=== PATIENT | male | born 1945 | race Caucasian/White ===

== ENCOUNTER 2020-10-16 21:56 | Inpatient (IN) ==
--- NOTE | 2020-10-16 22:12 | Internal Med History&Physical ---
HPI History of Present Illness Patient information: Note initiated : 10/16/20 at 10:08 pm Service Date, if different from initiated Date: [] Patient: Drew Gomez 75 y/o M admitted on for Hyponatremia. Chief Complaint: [] History of present illness: Mr. 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 The patient has been asymptomatic from hyponatremia. He also has a history of hypertension, and hyperlipidemia, chronic anemia. Constitutional: no fever, fatigue, or weight loss Eyes: no vision changes or pain Cardiovascular: no chest pain, no palpitations Respiratory: no cough or dyspnea Gastrointestinal: positive for abdominal distention, nausea, and pain abdominal pain Genitourinary: no dysuria or difficulty voiding Musculoskeletal: no arthralgia or myalgia, right BKA Integumentary: no skin lesion or wound Neurological: no focal weakness or numbness Psychiatric: no anxiety or depression Head: Atraumatic, normal inspection. Eyes: normal appearance, no scleral icterus. Neck: full ROM Respiratory: no respiratory distress. Cardiovascular: normal rate and rhythm, S1, S2. GI/Abdominal: abdominal distention, hypotympanic, decreased bowel sounds, nontender, no guarding. Extremities: right BKA, otherwise full range of motion, nontender. Neurological: CN II-XII intact, intact motor, intact sensation. Psychiatric: normal mood. 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) Peripheral artery disease (Chronic) Cellulitis (Chronic) History of colonoscopy (Chronic) History of foot surgery (Chronic) Atrial fibrillation (Chronic) Diabetes mellitus (Chronic) No pertinent past surgical history (Chronic) Neurogenic bladder (Chronic) Bladder outlet obstruction (Chronic) Hypertension (Chronic) History of leukemia (Chronic) Osteomyelitis (Chronic) Urinary retention (Chronic) Medical History (Updated 04/22/20 @ 19:29 by Mary Cuellar) Atrial fibrillation Below-knee amputation of right lower extremity Bladder outlet obstruction Cellulitis Diabetes mellitus History of leukemia Hypertension Immunosuppressed status MRSA (methicillin resistant staph aureus) culture positive MSSA bacteremia Neurogenic bladder Osteomyelitis Peripheral artery disease Squamous cell skin cancer Urinary retention Waldenstrom macroglobulinemia Surgical History (Updated 04/22/20 @ 19:20 by Mary Cuellar) History of colonoscopy History of foot surgery Foot/toes Family History (Updated 04/22/20 @ 19:30 by Mary Cuellar) Father Cancer Malignant neoplastic disease Mother Cancer COPD (chronic obstructive pulmonary disease) Heart disease Social History (Updated 04/22/20 @ 19:33 by Mary Cuellar) marital status: unknown alcohol intake frequency: holiday/special occasion only MEDS/ALLERGIES Home Medications and Allergies Home Medications Medication Instructions Recorded Confirmed Type amlodipine 10 mg tablet 10 mg PO QDAY 04/22/20 10/17/20 History apple cider vinegar 1,500 mg PO DAILYP PRN 04/22/20 10/17/20 History aspirin 81 mg tablet,delayed 81 mg PO QDAY 04/22/20 10/17/20 History release losartan 100 mg tablet 100 mg PO QDAY 04/22/20 10/17/20 History atorvastatin 40 mg PO DAILY 10/17/20 10/17/20 History lamivudine 100 mg PO BID 10/17/20 10/17/20 History metoprolol succinate 50 mg PO BID 10/17/20 10/17/20 History Allergies Allergy/AdvReac Type Severity Reaction Status Date / Time Penicillins Allergy Mild Hives Verified 10/17/20 00:48 acetaminophen [From Tylenol] Allergy Unknown Hives Verified 10/17/20 00:47 A/P Narrative A/P Narrative: Assessment: 75 year old male with a history of lymphoma currently on chemotherapy admitted for severe hyponatremia suspected to be secondary to chemotherapy. #Severe hyponatremia-euvolemic and assymptomatic -suspected this is from chemotherapy side effect #Acute on chronic anemia #Abdominal distention #Lymphoma #DM #Immunosuppressed status #Atrial fibrillation Plan -monitor sodium Q4, avoid overcorrection -admission labs -home medication reconciliation -DVT ppx: -Code status: -Disposition: Time Spent With Patient Time: Total time spent is greater than 50% in coordination of care (as documented) at patient's floor/unit and/or counseling patient:
[2020-10-17] MEDS ORDERED: SENNOSIDES 1 TABLET PO PRN (00:06)
[2020-10-17] MEDS ORDERED: LACTULOSE 20 GM/30 ML ORAL.SOL PO PRN (00:06)
[2020-10-17] MEDS ORDERED: ONDANSETRON 4 MG/2 ML VIAL IV PRN (00:06)
[2020-10-17 02:00] LABS: ALT/SGPT 11 U/L (<40); AST/SGOT 29 U/L (<40); Albumin 3.2 gm/dL (3.2-5.2); Albumin/Globulin Ratio 1.1 (1.0-2.3); Alkaline Phosphatase 145 U/L (39-117); Bilirubin,Total 1.3 mg/dL (0.1-1.0); Blood Urea Nitrogen 16 mg/dL (8-23); Calcium 8.5 mg/dL (8.6-10.4); Carbon Dioxide 24 mmol/L (22-30); Chloride 90 mmol/L (96-108); Globulin 2.8 gm/dL (2.2-3.7); Glomerular Filtration Rate 88; Glucose 117 mg/dL (70-105)
[2020-10-17 02:00] LABS: Hematocrit 21.2 % (41.0-55.0); Mean Platelet Volume 9.3 fL (7.4-10.4); Platelet Count 181 K/mcL (140-440); RBC 2.28 M/mcL (4.50-5.90); Red Cell Distribution Width 15.3 % (11.5-14.5); WBC 20.6 K/mcL (4.5-11.0)
[2020-10-17 02:21] LABS: Anisocytosis 1+ (None Seen); Hypochromasia 1+ (None Seen); Lymphocytes % 67 % (15-49); Monocytes % (Manual) 6 % (1-12); Platelet Estimate NORMAL (Normal); RBC Morphology ABNORMAL (Normal); Segmented Neutrophils % 27 % (38-78)
[2020-10-17] MEDS: 0.9 % SODIUM CHLORIDE 10 ML SYRINGE IV SCH ×3 (06:28→23:27)
[2020-10-17] MEDS: DOCUSATE SODIUM 100 MG CAPSULE PO SCH ×2 (10:13→20:27)
--- NOTE | 2020-10-17 11:40 | XRay Report ---
CLINICAL INFORMATION: Abdominal Discomfort COMPARISON: None. FINDINGS: Stomach, small and large bowel are minimally dilated compatible with mild ileus. There is no free air, pathologic calcification or soft tissue mass IMPRESSION: Mild ileus. Moderate rectal stool. Interpreted and Authenticated by: Ranjeet Gómez 10/17/20
--- NOTE | 2020-10-17 13:03 | Internal Med Progress Note ---
SUBJECTIVE Subjective Patient information: Note initiated : 10/17/20 at 12:59 pm Service Date, if different from initiated Date: [] Patient: Drew Gomez 75 y/o M admitted on 10/17/20 for Hyponatremia. Chief Complaint: [] Interval history: Mr. 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 The patient has been asymptomatic from hyponatremia. He also has a history of hypertension, and hyperlipidemia, chronic anemia. 10/17-sodium level improved but trend slowed, concerned about abdominal distention, passing less gas today than usual Head: Atraumatic, normal inspection. Eyes: normal appearance, no scleral icterus. Neck: full ROM Respiratory: no respiratory distress. Cardiovascular: normal rate and rhythm, S1, S2. GI/Abdominal: abdominal distention, hypotympanic, decreased bowel sounds, nontender, no guarding. Extremities: right BKA, otherwise full range of motion, nontender. Neurological: CN II-XII intact, intact motor, intact sensation. Psychiatric: normal mood. Skin: necrotic appearing skin lesions on left foot Constitutional Vitals: Vital Signs Temp Pulse Resp BP Pulse Ox 97.9 F 55 L 18 122/79 100 10/17/20 12:00 10/17/20 12:00 10/17/20 12:00 10/17/20 12:00 10/17/20 12:00 Period Temp Pulse Resp BP Sys/Aguilar Pulse Ox Last 24 Hr 97.1 F-98.4 F 35-79 13-23 95-125/56-106 94-100 Intake and Output 10/16/20 10/17/20 10/17/20 21:59 05:59 13:59 Intake Total 0 300 Output Total 600 475 Balance -600 -175 Weight 109.588 kg Intake & Output: Intake & Output 10/16/20 10/17/20 10/17/20 21:59 05:59 13:59 Intake Total 0 300 Output Total 600 475 Balance -600 -175 Weight 109.588 kg Intake: Oral 0 300 Output: Void Amount 600 475 Other: Meal Breakfast Percent of Meal Consumed 75% Feeding Ability Independent Urine Appearance Clear Clear Urine Color Dark Yellow Bright Yellow Urine Odor Normal Normal OBJ DATA Labs CBC & Chem 7: 10/17/20 07:59 10/17/20 07:59 Labs: Abnormal Lab Results 10/17/20 10/17/20 10/17/20 07:59 07:59 04:20 WBC RBC Hgb 7.1 L Hct RDW Seg Neutrophils % Lymphocytes % RBC Morphology Hypochromasia Anisocytosis Sodium 121 L 120 L Chloride Glucose Calcium Total Bilirubin Alkaline Phosphatase 10/17/20 10/17/20 01:01 01:00 WBC 20.6 H RBC 2.28 L Hgb 7.0 L* Hct 21.2 L RDW 15.3 H Seg Neutrophils % 27 L Lymphocytes % 67 H RBC Morphology Abnormal A Hypochromasia 1+ A Anisocytosis 1+ A Sodium 122 L Chloride 90 L Glucose 117 H Calcium 8.5 L Total Bilirubin 1.3 H Alkaline Phosphatase 145 H Meds: Medications Docusate Sodium (Docusate Sodium 100 Mg Capsule) 100 mg PO BID [facility] Last Admin: 10/17/20 10:13 Dose: Not Given Documented by: Lactulose (Lactulose 20 Gm/30 Ml Oral.Britany) 10 gm PO DAILYP PRN PRN Reason: Constipation Ondansetron HCl (Ondansetron 4 Mg/2 Ml Vial) 4 mg IV Q4HP PRN; Protocol PRN Reason: Nausea And Vomiting Senna (Sennosides 1 Tablet) 2 tab PO HSP PRN PRN Reason: Constipation Sodium Chloride (0.9 % Sodium Chloride 10 Ml Syringe) 10 ml IV Q8 [facility] Last Admin: 10/17/20 06:28 Dose: 10 ml Documented by: A/P Narrative A/P Narrative: Assessment: 75 year old male with a history of lymphoma currently on chemotherapy admitted for severe hyponatremia suspected to be secondary to chemotherapy. #Severe hyponatremia-euvolemic and assymptomatic -suspected this is from chemotherapy side effect #Chronic anemia #Abdominal distention #Leukocytosis-likely related to hematololic malignancy #Hx lymphoma-recently treated with lamivudine #DM #Immunosuppressed status #Hx of atrial fibrillation Plan -monitor sodium Q4, avoid overcorrection -consider 3% saline infusion -abdominal xray -follow hemoglobin, transfuse for hgb<7 or symptomatic anemia -check for hemolysis with ldh and haptoglobin -check serum and urine osmolality, urine sodium, TSH, AM cortisol, -hold home BP meds as blood pressure normal -holding home lamivudine -fluid restriction -DVT ppx: -Code status: -Disposition: Time Spent With Patient Time: Total time spent is greater than 50% in coordination of care (as documente d) at patient's floor/unit and/or counseling patient: QUALITY VTE Deep Vein Thrombosis/Pulmonary Embolism Present on Admission: No
[2020-10-17] MEDS ORDERED: CALCIUM CARBONATE 500 MG TAB.CHEW CHEWED ONE (13:25)
[2020-10-17 14:44] LABS: Thyroid Stimulating Hormone 6.06 uIU/mL (0.27-5.01)
[2020-10-17] MEDS ORDERED: BENZOCAINE 1 SPRAY BOTTLE TOPICAL ONE (15:23)
[2020-10-17 17:11] LABS: Sodium, Urine Random 36 mmol/L
--- NOTE | 2020-10-17 17:11 | XRay Report ---
CLINICAL INFORMATION: NG tube placement COMPARISON: None. FINDINGS: NG tube overlies the gastric body. Stomach small large bowel are mildly dilated compatible with ileus. IMPRESSION: NG tube overlies the gastric body. Mild ileus Interpreted and Authenticated by: Ranjeet Gómez 10/17/20
[2020-10-17 18:12] LABS: Osmolality,Urine 295 mOSM/kg (80-1000)
[2020-10-18] MEDS: 0.9 % SODIUM CHLORIDE 10 ML SYRINGE IV SCH ×3 (06:01→21:53)
[2020-10-18 10:02] LABS: Blood Urea Nitrogen 8 mg/dL (8-23); Calcium 8.6 mg/dL (8.6-10.4); Carbon Dioxide 26 mmol/L (22-30); Chloride 93 mmol/L (96-108); Glomerular Filtration Rate 93; Glucose 106 mg/dL (70-105)
[2020-10-18 10:10] LABS: Basophils # (Auto) 0.03 K/mcL (0.00-0.20); Basophils % (Auto) 0.2 % (0.0-2.0); Eosinophils # (Auto) 0 K/mcL (0.00-0.70); Eosinophils % (Auto) 0 % (0.0-7.0); Hematocrit 21.6 % (41.0-55.0); Lymphocytes # (Auto) 11.57 K/mcL (1.50-4.80); Lymphocytes % (Auto) 67.8 % (15.0-49.0); Mean Cell Volume 94.3 fL (80.0-100.0); Mean Corpuscular HGB Conc 32.4 g/dL (31.0-36.0); Mean Platelet Volume 9.2 fL (7.4-10.4); Monocytes # (Auto) 0.61 K/mcL (0.10-0.90); Monocytes % (Auto) 3.6 % (1.0-12.0); Neutrophils % (Auto) 28.4 % (38.0-78.0); Platelet Count 144 K/mcL (140-440); RBC 2.29 M/mcL (4.50-5.90); Red Cell Distribution Width 15.4 % (11.5-14.5); WBC 17.1 K/mcL (4.5-11.0)
[2020-10-18] MEDS ORDERED: 0.9 % SODIUM CHLORIDE 250 ML IV SCH (10:30)
[2020-10-18] MEDS: DOCUSATE SODIUM 100 MG CAPSULE PO SCH ×2 (11:15→20:23)
[2020-10-18] MEDS ORDERED: LACTATED RINGERS 1,000 ML IV SCH (11:15)
--- NOTE | 2020-10-18 15:47 | Internal Med Progress Note ---
SUBJECTIVE Subjective Patient information: Note initiated : 10/18/20 at 3:40 pm Service Date, if different from initiated Date: [] Patient: Drew Gomez 75 y/o M admitted on 10/17/20 for Hyponatremia. Chief Complaint: [] Interval history: Mr. Gomez is a 75 year old male with history of lymphoma on lamivudine had routine labs drawn by oncology and found to have severe hyponatremia, he presented to [facility] ED and was transferred to [facility] because there [facility] no beds [facility]. The patient has been asymptomatic from hyponatremia. He also has a history of hypertension, and hyperlipidemia, chronic anemia. 10/17-sodium level improved but trend slowed, concerned about abdominal distention, passing less gas today than usual, abdominal xray showed ileus, NG placed and started suction with improvement in nausea 10/18-improving sodium level, attempted transfer to [facility]-denied. Continues with NG to suction, feels better than yesterday. 1 unit RBC for anemia. Head: Atraumatic, normal inspection. Eyes: normal appearance, no scleral icterus. Neck: full ROM Respiratory: no respiratory distress. Cardiovascular: normal rate and rhythm, S1, S2. GI/Abdominal: NG tube, abdominal distention, hypotympanic, decreased bowel soun ds, nontender, no guarding. Extremities: right BKA, otherwise full range of motion, nontender. Neurological: CN II-XII intact, intact motor, intact sensation. Psychiatric: normal mood. Skin: necrotic appearing skin lesions on left foot Constitutional Vitals: Vital Signs Temp Pulse Resp BP Pulse Ox 98.4 F 72 18 128/75 98 10/18/20 15:12 10/18/20 15:12 10/18/20 15:12 10/18/20 15:12 10/18/20 15:12 Period Temp Pulse Resp BP Sys/Aguilar Pulse Ox Last 24 Hr 97.3 F-98.4 F 49-72 14-28 102-134/52-93 95-100 Intake and Output 10/18/20 10/18/20 10/18/20 05:59 13:59 21:59 Intake Total 0 0 471 Output Total 650 1550 Balance -650 -1550 471 Intake & Output: Intake & Output 10/18/20 10/18/2021 05:59 13:59 21:59 Intake Total 0 0 471 Output Total 650 1550 Balance -650 -1550 471 Intake: IV 231 Sodium Chloride 0.9% 250 ml @ 0 20 mls/hr IV .[id number] [facility] Rx#: [id number] Lactated Ringers 1,000 ml @ 75 231 mls/hr IV .[id number] [facility] Rx#: [id number] Oral 0 0 240 Tube Feeding 0 Output: Gastric Drainage 650 1100 Left Nare 650 1100 Void Amount 0 450 Other: Urine Appearance Clear Urine Color Dark Yellow Urine Odor Strong OBJ DATA Labs CBC & Chem 7: 10/18/20 08:41 10/18/20 08:40 Labs: Abnormal Lab Results 10/18/20 10/18/20 10/17/20 08:41 08:40 20:00 WBC 17.1 H RBC 2.29 L Hgb 7.0 L* Hct 21.6 L RDW 15.4 H Neut % (Auto) 28.4 L Lymph % (Auto) 67.8 H Lymph # (Auto) 11.57 H Seg Neutrophils % Lymphocytes % RBC Morphology Hypochromasia Anisocytosis Haptoglobin Sodium 126 L 123 L Chloride 93 L Anion Gap 7.0 L Glucose 106 H Osmolality Calcium Total Bilirubin Alkaline Phosphatase TSH 10/17/20 10/17/20 10/17/20 16:02 13:20 11:58 WBC RBC Hgb Hct RDW Neut % (Auto) Lymph % (Auto) Lymph # (Auto) Seg Neutrophils % Lymphocytes % RBC Morphology Hypochromasia Anisocytosis Haptoglobin 24 L Sodium 122 L 120 L Chloride Anion Gap Glucose Osmolality 263 L Calcium Total Bilirubin Alkaline Phosphatase TSH 6.06 H 10/17/20 10/17/20 10/17/20 07:59 07:59 04:20 WBC RBC Hgb 7.1 L Hct RDW Neut % (Auto) Lymph % (Auto) Lymph # (Auto) Seg Neutrophils % Lymphocytes % RBC Morphology Hypochromasia Anisocytosis Haptoglobin Sodium 121 L 120 L Chloride Anion Gap Glucose Osmolality Calcium Total Bilirubin Alkaline Phosphatase TSH 10/17/20 10/17/20 01:01 01:00 WBC 20.6 H RBC 2.28 L Hgb 7.0 L* Hct 21.2 L RDW 15.3 H Neut % (Auto) Lymph % (Auto) Lymph # (Auto) Seg Neutrophils % 27 L Lymphocytes % 67 H RBC Morphology Abnormal A Hypochromasia 1+ A Anisocytosis 1+ A Haptoglobin Sodium 122 L Chloride 90 L Anion Gap Glucose 117 H Osmolality Calcium 8.5 L Total Bilirubin 1.3 H Alkaline Phosphatase 145 H TSH Meds: Medications Docusate Sodium (Docusate Sodium 100 Mg Capsule) 100 mg PO BID [facility] Last Admin: 10/18/20 11:15 Dose: Not Given Documented by: Sodium Chloride (Sodium Chloride 0.9%) 250 mls @ 20 mls/hr IV .[id number] [facility] Stop: 10/18/20 22:59 Last Infusion: 10/18/20 15:11 Dose: 0 mls/hr Documented by: Lactated Ringer's (Lactated Ringers) 1,000 mls @ 75 mls/hr IV .[id number] [facility] Stop: 10/19/20 00:34 Last Infusion: 10/18/20 15:12 Dose: 0 mls/hr Documented by: Lactulose (Lactulose 20 Gm/30 Ml Oral.Britany) 10 gm PO DAILYP PRN PRN Reason: Constipation Ondansetron HCl (Ondansetron 4 Mg/2 Ml Vial) 4 mg IV Q4HP PRN; Protocol PRN Reason: Nausea And Vomiting Last Admin: 10/17/20 15:03 Dose: 4 mg Documented by: Senna (Sennosides 1 Tablet) 2 tab PO HSP PRN PRN Reason: Constipation Sodium Chloride (0.9 % Sodium Chloride 10 Ml Syringe) 10 ml IV Q8 [facility] Last Admin: 10/18/20 15:11 Dose: 10 ml Documented by: A/P Narrative A/P Narrative: Assessment: 75 year old male with a history of lymphoma currently on chemotherapy admitted for severe hyponatremia suspected to be secondary to chemotherapy. 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 -mildly elevated TSH, AM cortisol normal #Chronic anemia -1 unit RBC 10/18 -normal LDH, decreased haptoglobin #Leukocytosis-likely related to hematologic malignancy #Hx Waldenstrom macroglobulinemia-recently treated with lamivudine #DM #Immunosuppressed status #Hx of atrial fibrillation #Subclinical hypothyroidism #Hx right BKA Plan -following sodium, avoid overcorrection -IV fluid to compensate for NG suction -follow hemoglobin, transfuse for hgb<7 or symptomatic anemia -hold home BP meds as blood pressure normal -holding home lamivudine -fluid restriction -DVT ppx: ambulatory -Code status: Full -Disposition: TBD Time Spent With Patient Time: Total time spent is greater than 50% in coordination of care (as documented) at patient's floor/unit and/or counseling patient: QUALITY VTE Deep Vein Thrombosis/Pulmonary Embolism Present on Admission: No
[2020-10-18] MEDS ORDERED: PANTOPRAZOLE 40 MG VIAL IV ONE (17:09)
[2020-10-19] MEDS: 0.9 % SODIUM CHLORIDE 10 ML SYRINGE IV SCH ×3 (05:04→21:40)
[2020-10-19] MEDS: PANTOPRAZOLE 40 MG VIAL IV SCH ×2 (07:33→18:02)
[2020-10-19] MEDS: DOCUSATE SODIUM 100 MG CAPSULE PO SCH ×2 (07:33→20:00)
[2020-10-19 07:40] LABS: Blood Urea Nitrogen 7 mg/dL (8-23); Calcium 8.7 mg/dL (8.6-10.4); Carbon Dioxide 28 mmol/L (22-30); Chloride 92 mmol/L (96-108); Glomerular Filtration Rate 93; Glucose 89 mg/dL (70-105)
[2020-10-19 07:43] LABS: Basophils # (Auto) 0.04 K/mcL (0.00-0.20); Basophils % (Auto) 0.3 % (0.0-2.0); Eosinophils # (Auto) 0.01 K/mcL (0.00-0.70); Eosinophils % (Auto) 0.1 % (0.0-7.0); Hematocrit 24.2 % (41.0-55.0); Hemoglobin 7.8 g/dL (13.5-16.5); Lymphocytes # (Auto) 9.71 K/mcL (1.50-4.80); Lymphocytes % (Auto) 62.2 % (15.0-49.0); Mean Cell Volume 96.8 fL (80.0-100.0); Mean Corpuscular HGB Conc 32.2 g/dL (31.0-36.0); Mean Platelet Volume 9.1 fL (7.4-10.4); Monocytes # (Auto) 0.64 K/mcL (0.10-0.90); Monocytes % (Auto) 4.1 % (1.0-12.0); Neutrophils % (Auto) 33.3 % (38.0-78.0); Platelet Count 125 K/mcL (140-440); Red Cell Distribution Width 15.6 % (11.5-14.5); WBC 15.6 K/mcL (4.5-11.0)
[2020-10-19] MEDS ORDERED: LORazepam 2 MG/ML VIAL IV PRN (09:23)
--- NOTE | 2020-10-19 14:48 | XRay Report ---
CLINICAL INFORMATION: follow ileus COMPARISON: 10/17/2020 FINDINGS: NG tube overlies the proximal gastric body. Stool gas pattern is normal. Possible free air under the right diaphragm. Dense consolidated atelectasis of the entire left lower lobe has resulted in increased retrocardiac density. IMPRESSION: No evidence of ileus. Possible free air. Suggest left decubitus abdomen film. Densely consolidated atelectasis of the left lower lobe Interpreted and Authenticated by: Ranjeet Gómez 10/19/20
--- NOTE | 2020-10-19 16:41 | Internal Med Progress Note ---
SUBJECTIVE Subjective Patient information: Note initiated : 10/19/20 at 4:39 pm Service Date, if different from initiated Date: [] Patient: Drew Gomez 75 y/o M admitted on 10/17/20 for Hyponatremia. Chief Complaint: [] Interval history: Mr. Gomez is a 75 year old male with history of lymphoma on lamivudine had routine labs drawn by oncology and found to have severe hyponatremia, he presented to [facility] ED and was transferred to [facility] because there were no beds at [facility]. The patient has been asymptomatic from hyponatremia. He also has a history of hypertension, and hyperlipidemia, chronic anemia. 10/17-sodium level improved but trend slowed, concerned about abdominal distention, passing less gas today than usual, abdominal xray showed ileus, NG placed and started suction with improvement in nausea 10/18-improving sodium level, attempted transfer to [facility]-denied. Continues with NG to suction, feels better than yesterday. NG suctioning coffee ground material, 1 unit RBC for anemia. 10/19-had a bowel movement and passing gas, NG tube suction clear today. Abdominal xray not suggestive of ileus. Discontinued suction and advanced to clear liquid diet. Head: Atraumatic, normal inspection. Eyes: normal appearance, no scleral icterus. Neck: full ROM Respiratory: no respiratory distress. Cardiovascular: normal rate and rhythm, S1, S2. GI/Abdominal: NG tube, abdominal distention, decreased bowel sounds, nontender, no guarding. Extremities: right BKA, otherwise full range of motion, nontender. Neurological: CN II-XII intact, intact motor, intact sensation. Psychiatric: normal mood. Skin: necrotic appearing skin lesions on left foot Constitutional Vitals: Vital Signs Temp Pulse Resp BP Pulse Ox 97.7 F 116 H 19 128/93 94 10/19/20 12:00 10/19/20 14:00 10/19/20 14:00 10/19/20 14:00 10/19/20 14:00 Period Temp Pulse Resp BP Sys/Aguilar Pulse Ox Last 24 Hr 97.7 F-98.8 F 61-116 12-25 103-140/55-93 91-99 Intake and Output 10/19/20 10/19/20 10/19/20 05:59 13:59 21:59 Intake Total 919 1560 Output Total 700 1375 Balance 219 185 Weight 109.316 kg Patient Weight 10/20/20 05:59 Weight 109.316 kg Intake & Output: Intake & Output 10/19/20 10/19/20 10/19/20 05:59 13:59 21:59 Intake Total 919 1560 Output Total 700 1375 Balance 219 185 Weight 109.316 kg Intake: IV 769 Lactated Ringers 1,000 ml @ 75 769 mls/hr IV .[id number] [facility] Rx#: [id number] Oral 150 1560 Output: Gastric Drainage 150 1150 Left Nare 150 1150 Void Amount 550 225 Other: Meal Lunch Urine Appearance Clear Clear Urine Color Dark Yellow Bright Yellow Stool Size Small Stool Color Black Stool Consistency Soft # Bowel Movements 1 OBJ DATA Labs CBC & Chem 7: 10/19/20 05:10 10/19/20 05:10 Labs: Abnormal Lab Results 10/19/20 10/19/20 10/18/20 05:10 05:10 22:02 WBC 15.6 H RBC 2.50 L Hgb 7.8 L 8.4 L Hct 24.2 L RDW 15.6 H Plt Count 125 L Neut % (Auto) 33.3 L Lymph % (Auto) 62.2 H Lymph # (Auto) 9.71 H Seg Neutrophils % Lymphocytes % RBC Morphology Hypochromasia Anisocytosis Haptoglobin Sodium 128 L Chloride 92 L Anion Gap BUN 7 L Glucose Osmolality Calcium Total Bilirubin Alkaline Phosphatase TSH 10/18/20 10/18/20 10/18/20 22:02 16:25 08:41 WBC 17.1 H RBC 2.29 L Hgb 7.0 L* Hct 21.6 L RDW 15.4 H Plt Count Neut % (Auto) 28.4 L Lymph % (Auto) 67.8 H Lymph # (Auto) 11.57 H Seg Neutrophils % Lymphocytes % RBC Morphology Hypochromasia Anisocytosis Haptoglobin Sodium 129 L 128 L Chloride Anion Gap BUN Glucose Osmolality Calcium Total Bilirubin Alkaline Phosphatase TSH 10/18/20 10/17/20 10/17/20 08:40 20:00 16:02 WBC RBC Hgb Hct RDW Plt Count Neut % (Auto) Lymph % (Auto) Lymph # (Auto) Seg Neutrophils % Lymphocytes % RBC Morphology Hypochromasia Anisocytosis Haptoglobin Sodium 126 L 123 L 122 L Chloride 93 L Anion Gap 7.0 L BUN Glucose 106 H Osmolality Calcium Total Bilirubin Alkaline Phosphatase TSH 10/17/20 10/17/20 10/17/20 13:20 11:58 07:59 WBC RBC Hgb Hct RDW Plt Count Neut % (Auto) Lymph % (Auto) Lymph # (Auto) Seg Neutrophils % Lymphocytes % RBC Morphology Hypochromasia Anisocytosis Haptoglobin 24 L Sodium 120 L 121 L Chloride Anion Gap BUN Glucose Osmolality 263 L Calcium Total Bilirubin Alkaline Phosphatase TSH 6.06 H 10/17/20 10/17/20 10/17/20 07:59 04:20 01:01 WBC 20.6 H RBC 2.28 L Hgb 7.1 L 7.0 L* Hct 21.2 L RDW 15.3 H Plt Count Neut % (Auto) Lymph % (Auto) Lymph # (Auto) Seg Neutrophils % 27 L Lymphocytes % 67 H RBC Morphology Abnormal A Hypochromasia 1+ A Anisocytosis 1+ A Haptoglobin Sodium 120 L Chloride Anion Gap BUN Glucose Osmolality Calcium Total Bilirubin Alkaline Phosphatase [facility] 10/17/20 01:00 WBC RBC Hgb Hct RDW Plt Count Neut % (Auto) Lymph % (Auto) Lymph # (Auto) Seg Neutrophils % Lymphocytes % RBC Morphology Hypochromasia Anisocytosis Haptoglobin Sodium 122 L Chloride 90 L Anion Gap BUN Glucose 117 H Osmolality Calcium 8.5 L Total Bilirubin 1.3 H Alkaline Phosphatase 145 H TSH Meds: Medications Docusate Sodium (Docusate Sodium 100 Mg Capsule) 100 mg PO BID [facility] Last Admin: 10/19/20 07:33 Dose: Not Given Documented by: Lactulose (Lactulose 20 Gm/30 Ml Oral.Britany) 10 gm PO DAILYP PRN PRN Reason: Constipation Lorazepam (Lorazepam 2 Mg/Ml Vial) 0.5 mg IV Q2HP PRN PRN Reason: ANXIETY/SEDATION Last Admin: 10/19/20 09:43 Dose: 0.5 mg Documented by: Ondansetron HCl (Ondansetron 4 Mg/2 Ml Vial) 4 mg IV Q4HP PRN; Protocol PRN Reason: Nausea And Vomiting Last Admin: 10/17/20 15:03 Dose: 4 mg Documented by: Pantoprazole Sodium (Pantoprazole 40 Mg Vial) 40 mg IV BIDAC [facility] Last Admin: 10/19/20 07:33 Dose: 40 mg Documented by: Senna (Sennosides 1 Tablet) 2 tab PO HSP PRN PRN Reason: Constipation Sodium Chloride (0.9 % Sodium Chloride 10 Ml Syringe) 10 ml IV Q8 [facility] Last Admin: 10/19/20 05:04 Dose: 10 ml Documented by: A/P Narrative A/P Narrative: Assessment: 75 year old male with a history of lymphoma currently on chemotherapy admitted for severe hyponatremia suspected to be secondary to chemotherapy. 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 -mildly elevated TSH, AM cortisol normal #Chronic anemia -1 unit RBC 10/18 -normal LDH, decreased haptoglobin #B-cell prolymphocytic leukemia #Hx Waldenstrom macroglobulinemia #Lymphocytosis likely from leukemia #Diabetes mellitus #Immunosuppressed status #Hx of atrial fibrillation #Subclinical hypothyroidism #Hx right BKA Plan -following sodium daily now -clear liquid diet -follow hemoglobin, transfuse for hgb<7 or symptomatic anemia -continue PPI, consider GI workup if downtrending -left decubitus abdominal xray for possible free air -hold home BP meds as blood pressure normal -holding home lamivudine -fluid restriction -DVT ppx: SCD for anemia -Code status: Full -Disposition: TBD Time Spent With Patient Time: Total time spent is greater than 50% in coordination of care (as documented) at patient's floor/unit and/or counseling patient: QUALITY VTE Deep Vein Thrombosis/Pulmonary Embolism Present on Admission: No
--- NOTE | 2020-10-19 19:01 | XRay Report ---
CLINICAL INFORMATION: possible free air COMPARISON: None. FINDINGS: There is no free air identified over the liver on the decubitus film. IMPRESSION: No free air identified. Interpreted and Authenticated by: Ranjeet Gómez 10/19/20
--- NOTE | 2020-10-19 19:08 | XRay Report ---
CLINICAL INFORMATION: increased oxygen requirement COMPARISON: 10/31/2013 FINDINGS: The heart is moderately enlarged-increased from prior exam. Mediastinum is unremarkable. Pulmonary vessels appear normal. Large dense consolidated region of atelectasis or, less likely, infiltrate has developed in the left lower lobe (retrocardiac region) with a small infiltrate or atelectasis developing in the right lower lobe. Small bilateral pleural effusions noted IMPRESSION: Large region of consolidated atelectasis or, less likely, infiltrate developing in the left lower lobe with small effusion. This is new from prior study. Consider aspiration Small region of infiltrate or atelectasis in the right lower lobe. This is also new Interpreted and Authenticated by: Ranjeet Gómez 10/19/20
[2020-10-19] MEDS ORDERED: LEVOFLOXACIN 500 MG/100 ML BAG IV SCH (20:00)
[2020-10-19] MEDS ORDERED: LEVOFLOXACIN 750 MG/150 ML BAG IV SCH (20:00)
[2020-10-20] MEDS ORDERED: LORazepam 2 MG/ML VIAL IV ONE (01:51)
[2020-10-20] MEDS: 0.9 % SODIUM CHLORIDE 10 ML SYRINGE IV SCH ×5 (04:59→20:10)
[2020-10-20 06:46] LABS: Basophils # (Auto) 0.03 K/mcL (0.00-0.20); Basophils % (Auto) 0.2 % (0.0-2.0); Eosinophils # (Auto) 0.01 K/mcL (0.00-0.70); Eosinophils % (Auto) 0.1 % (0.0-7.0); Hematocrit 24.7 % (41.0-55.0); Hemoglobin 7.7 g/dL (13.5-16.5); Lymphocytes # (Auto) 8.14 K/mcL (1.50-4.80); Lymphocytes % (Auto) 61.1 % (15.0-49.0); Mean Cell Volume 96.9 fL (80.0-100.0); Mean Corpuscular HGB Conc 31.2 g/dL (31.0-36.0); Mean Platelet Volume 9.1 fL (7.4-10.4); Monocytes # (Auto) 1.26 K/mcL (0.10-0.90); Monocytes % (Auto) 9.5 % (1.0-12.0); Neutrophils % (Auto) 29.1 % (38.0-78.0); Platelet Count 110 K/mcL (140-440); RBC 2.55 M/mcL (4.50-5.90); Red Cell Distribution Width 15.2 % (11.5-14.5); WBC 13.3 K/mcL (4.5-11.0)
[2020-10-20] MEDS: DOCUSATE SODIUM 100 MG CAPSULE PO SCH ×2 (07:11→20:10)
[2020-10-20] MEDS: PANTOPRAZOLE 40 MG VIAL IV SCH ×2 (07:12→16:58)
[2020-10-20 07:35] LABS: Blood Urea Nitrogen 7 mg/dL (8-23); Calcium 8.6 mg/dL (8.6-10.4); Carbon Dioxide 28 mmol/L (22-30); Chloride 95 mmol/L (96-108); Glomerular Filtration Rate 100; Glucose 102 mg/dL (70-105)
[2020-10-20] MEDS ORDERED: MINERAL OIL 1 DOSE ENEMA PR ONE (11:12)
[2020-10-20] MEDS ORDERED: ONDANSETRON 4 MG/2 ML VIAL IV PRN (13:14)
[2020-10-20] MEDS ORDERED: SENNOSIDES 1 TABLET PO PRN (13:14)
[2020-10-20] MEDS ORDERED: LACTULOSE 20 GM/30 ML ORAL.SOL PO PRN (13:14)
--- NOTE | 2020-10-20 13:15 | Internal Med Progress Note ---
SUBJECTIVE Subjective Patient information: Note initiated : 10/20/20 at 1:09 pm Service Date, if different from initiated Date: [] Patient: Drew Gomez 75 y/o M admitted on 10/17/20 for Hyponatremia. Chief Complaint: [] Interval history: Mr. Gomez is a 75 year old male with history of lymphoma on lamivudine had routine labs drawn by oncology and found to have severe hyponatremia, he presented to [facility] ED and was transferred to [facility] because there were no beds at [facility]. The patient has been asymptomatic from hyponatremia. He also has a history of hypertension, and hyperlipidemia, chronic anemia. 10/17-sodium level improved but trend slowed, concerned about abdominal distention, passing less gas today than usual, abdominal xray showed ileus, NG placed and started suction with improvement in nausea 10/18-improving sodium level, attempted transfer to [facility]-denied. Continues with NG to suction, feels better than yesterday. NG suctioning coffee ground material, 1 unit RBC for anemia. 10/19-had a small bowel movement and passing gas, NG tube suction clear today. Abdominal xray not suggestive of ileus. Discontinued suction. Increased oxygen requirment and rales so chest xray ordered which infiltrate possibly from aspiration, started Ceftriaxone. Speech consulted, NPO. 10/20-feels ok, still no bowel movement today, speech recommended dysphagia diet, bowel regimen, NG clamped but will keep until bowel movements and tolerating diet. Head: Atraumatic, normal inspection. Eyes: normal appearance, no scleral icterus. Neck: full ROM Respiratory: no respiratory distress. Cardiovascular: normal rate and rhythm, S1, S2. GI/Abdominal: NG tube, abdominal distention, decreased bowel sounds, nontender, no guarding. Extremities: right BKA, otherwise full range of motion, nontender. Neurological: CN II-XII intact, intact motor, intact sensation. Psychiatric: normal mood. Skin: necrotic appearing skin lesions on left foot Constitutional Vitals: Vital Signs Temp Pulse Resp BP Pulse Ox 97.9 F 112 H 24 H 133/75 95 10/20/20 08:00 10/20/20 11:22 10/20/20 13:02 10/20/20 12:00 10/20/20 11:22 Period Temp Pulse Resp BP Sys/Aguilar Pulse Ox Last 24 Hr 97.6 F-98.9 F 74-116 15-29 105-135/60-93 93-100 Intake and Output 10/19/20 10/20/20 10/20/20 21:59 05:59 13:59 Intake Total 750 150 400 Output Total 300 100 Balance 750 -150 300 Weight 104.78 kg Intake & Output: Intake & Output 10/19/20 10/20/20 10/20/20 21:59 05:59 13:59 Intake Total 750 150 400 Output Total 300 100 Balance 750 -150 300 Weight 104.78 kg Intake: IV 150 Oral 750 0 400 Output: Gastric Drainage 0 Left Nare 0 Void Amount 300 100 Other: Meal Breakfast Percent of Meal Consumed 100% Urine Appearance Clear Clear Urine Color Dark Yellow Dark Yellow Light Mar Urine Odor Normal Normal Stool Size Small Stool Color Black Stool Consistency Soft # Bowel Movements 1 OBJ DATA Labs CBC & Chem 7: 10/20/20 05:31 10/20/20 05:31 Labs: Abnormal Lab Results 10/20/20 10/20/20 10/19/20 05:31 05:31 05:10 WBC 13.3 H RBC 2.55 L Hgb 7.7 L Hct 24.7 L RDW 15.2 H Plt Count 110 L Neut % (Auto) 29.1 L Lymph % (Auto) 61.1 H Lymph # (Auto) 8.14 H [place] # (Auto) 1.26 H Haptoglobin Sodium 130 L 128 L Chloride 95 L 92 L Anion Gap 7.0 L BUN 7 L 7 L Creatinine 0.6 L Glucose Osmolality [facility] 10/19/20 10/18/20 10/18/20 05:10 22:02 22:02 WBC 15.6 H RBC 2.50 L Hgb 7.8 L 8.4 L Hct 24.2 L RDW 15.6 H Plt Count 125 L Neut % (Auto) 33.3 L Lymph % (Auto) 62.2 H Lymph # (Auto) 9.71 H [place] # (Auto) Haptoglobin Sodium 129 L Chloride Anion Gap BUN Creatinine Glucose Osmolality [facility] 10/18/20 10/18/20 10/18/20 16:25 08:41 08:40 WBC 17.1 H RBC 2.29 L Hgb 7.0 L* Hct 21.6 L RDW 15.4 H Plt Count Neut % (Auto) 28.4 L Lymph % (Auto) 67.8 H Lymph # (Auto) 11.57 H [place] # (Auto) Haptoglobin Sodium 128 L 126 L Chloride 93 L Anion Gap 7.0 L BUN Creatinine Glucose 106 H Osmolality TSH 10/17/20 10/17/20 10/17/20 20:00 16:02 13:20 WBC RBC Hgb Hct RDW Plt Count Neut % (Auto) Lymph % (Auto) Lymph # (Auto) [place] # (Auto) Haptoglobin 24 L Sodium 123 L 122 L Chloride Anion Gap BUN Creatinine Glucose Osmolality 263 L TSH 6.06 H 10/17/20 11:58 WBC RBC Hgb Hct RDW Plt Count Neut % (Auto) Lymph % (Auto) Lymph # (Auto) [place] # (Auto) Haptoglobin Sodium 120 L Chloride Anion Gap BUN Creatinine Glucose Osmolality TSH Meds: Medications Docusate Sodium (Docusate Sodium 100 Mg Capsule) 100 mg PO BID [facility] Last Admin: 10/20/20 07:11 Dose: Not Given Documented by: Levofloxacin (Levaquin) 750 mg in 150 mls @ 100 mls/hr IV Q24H [facility] Stop: 10/24/20 19:59 Last Infusion: 10/20/20 00:00 Dose: Infused Documented by: Lactulose (Lactulose 20 Gm/30 Ml Oral.Britany) 10 gm PO DAILYP PRN PRN Reason: Constipation Last Admin: 10/19/20 18:43 Dose: 10 gm Documented by: Lactulose (Lactulose 20 Gm/30 Ml Oral.Britany) 30 gm PO TID [facility] Ondansetron HCl (Ondansetron 4 Mg/2 Ml Vial) 4 mg IV Q4HP PRN; Protocol PRN Reason: Nausea And Vomiting Last Admin: 10/17/20 15:03 Dose: 4 mg Documented by: Pantoprazole Sodium (Pantoprazole 40 Mg Vial) 40 mg IV BIDAC [facility] Last Admin: 10/20/20 07:12 Dose: 40 mg Documented by: Senna (Sennosides 1 Tablet) 2 tab PO HSP PRN PRN Reason: Constipation Sodium Chloride (0.9 % Sodium Chloride 10 Ml Syringe) 10 ml IV Q8 [facility] Last Admin: 10/20/20 13:08 Dose: 10 ml Documented by: A/P Narrative A/P Narrative: Assessment: 75 year old male with a history of lymphoma currently on chemotherapy admitted for severe hyponatremia suspected to be secondary to chemotherapy. 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 #Lymphocytosis likely from leukemia #Diabetes mellitus #Immunosuppressed status #Hx of atrial fibrillation #Subclinical hypothyroidism #Left foot wounds #Hx of PVD #Hx right BKA Plan -transfer to med/surg -Ceftriaxone x5 days for PNA -ileus seems to be resolving, still has NG tube but clamped -following sodium daily now -dysphagia diet -follow hemoglobin, transfuse for hgb<7 or symptomatic anemia -continue PPI, no evidence of recurrent coffee grounds -holding home BP meds as blood pressure normal -holding home aspirin -holding home lamivudine -fluid restriction -Bowel regimen -DVT ppx: SCD for anemia -Code status: Full -Disposition: TBD Time Spent With Patient Time: Total time spent is greater than 50% in coordination of care (as documented) at patient's floor/unit and/or counseling patient: QUALITY VTE Deep Vein Thrombosis/Pulmonary Embolism Present on Admission: No
[2020-10-20] MEDS: LACTULOSE 20 GM/30 ML ORAL.SOL PO SCH ×2 (14:54→20:11)
[2020-10-20] MEDS: LEVOFLOXACIN 750 MG/150 ML BAG IV SCH (14:55)
[2020-10-20] MEDS ORDERED: LACTULOSE 20 GM/30 ML ORAL.SOL PO SCH ×2 (15:00)
[2020-10-20] MEDS ORDERED: MELATONIN 3 MG TABLET PO PRN (15:36)
[2020-10-20] MEDS ORDERED: ALBUTEROL SULFATE 2.5 MG/3 ML NEBULIZER NEB PRN (15:39)
[2020-10-20] MEDS: IPRATROPIUM/ALBUTEROL 3 ML AMPUL.NEB NEB SCH ×2 (15:53→21:14)
[2020-10-20] MEDS ORDERED: LORazepam 0.5 MG TABLET PO ONE (22:23)
[2020-10-20] MEDS ORDERED: LORazepam 0.5 MG TABLET ONE (22:26)
[2020-10-21] MEDS ORDERED: LORazepam 2 MG/ML VIAL ONE (01:42)
[2020-10-21] MEDS ORDERED: LORazepam 2 MG/ML VIAL IV ONE (01:42)
[2020-10-21] MEDS: 0.9 % SODIUM CHLORIDE 10 ML SYRINGE IV SCH ×2 (06:06→15:31)
--- NOTE | 2020-10-21 06:27 | Internal Med Progress Note ---
SUBJECTIVE Subjective Patient information: Note initiated : 10/21/20 at 6:27 am Service Date, if different from initiated Date: [] Patient: Drew Gomez 75 y/o M admitted on 10/17/20 for Hyponatremia. Chief Complaint: [] Interval history: Mr. Gomez is a 75 year old male with history of lymphoma on lamivudine had routine labs drawn by oncology and found to have severe hyponatremia, he presented to [facility] ED and was transferred to [facility] because there were no beds at [facility]. The patient has been asymptomatic from hyponatremia. He also has a history of hypertension, and hyperlipidemia, chronic anemia. 10/17-sodium level improved but trend slowed, concerned about abdominal distention, passing less gas today than usual, abdominal xray showed ileus, NG placed and started suction with improvement in nausea 10/18-improving sodium level, attempted transfer to [facility]-denied. Continues with NG to suction, feels better than yesterday. NG suctioning coffee ground material, 1 unit RBC for anemia. 10/19-had a small bowel movement and passing gas, NG tube suction clear today. Abdominal xray not suggestive of ileus. Discontinued suction. Increased oxygen requirment and rales so chest xray ordered which infiltrate possibly from aspiration, started Ceftriaxone. Speech consulted, NPO. 10/20-feels ok, still no bowel movement today, speech recommended dysphagia diet, bowel regimen, NG clamped but will keep until bowel movements and tolerating diet. 10/21-stable respiratory status, large bowel movement yesterday, ileus probably resolved now, sodium continues to improve, hemoglobin about the same as yesterday and at patient's baseline Head: Atraumatic, normal inspection. Eyes: normal appearance, no scleral icterus. Neck: full ROM Respiratory: no respiratory distress. Cardiovascular: normal rate and rhythm, S1, S2. GI/Abdominal: NG tube, abdominal distention, decreased bowel sounds, nontender, no guarding. Extremities: right BKA, otherwise full range of motion, nontender. Neurological: CN II-XII intact, intact motor, intact sensation. Psychiatric: normal mood. Skin: necrotic appearing skin lesions on left foot Constitutional Vitals: Vital Signs Temp Pulse Resp BP Pulse Ox 97.7 F 92 H 20 124/67 92 10/21/20 03:58 10/21/20 03:58 10/21/20 03:58 10/21/20 03:58 10/21/20 03:58 Period Temp Pulse Resp BP Sys/Aguilar Pulse Ox Last 24 Hr 97.7 F-98.0 F 78-112 16-24 118-135/66-88 92-98 Intake and Output 10/20/20 10/21/20 10/21/20 21:59 05:59 13:59 Intake Total 1190 200 Output Total 925 525 Balance 265 200 -525 Weight 93.531 kg Intake & Output: Intake & Output 10/20/20 10/21/20 10/21/20 21:59 05:59 13:59 Intake Total 1190 200 Output Total 925 525 Balance 265 200 -525 Weight 93.531 kg Intake: IV 150 Oral 1040 200 Output: Void Amount 925 525 Other: Meal Dinner Percent of Meal Consumed 100% Feeding Ability Assist with Tray Set Up Urine Appearance Clear Clear Urine Color Dark Yellow Dark Mar Light Mar Stool Size Copious Stool Color Black Stool Consistency Soft Formed Liquid # Bowel Movements 1 # of times incontinent of 1 Bowels OBJ DATA Labs CBC & Chem 7: 10/21/20 04:38 10/21/20 04:38 Labs: Abnormal Lab Results 10/20/20 10/20/20 10/19/20 05:31 05:31 05:10 WBC 13.3 H RBC 2.55 L Hgb 7.7 L Hct 24.7 L RDW 15.2 H Plt Count 110 L Neut % (Auto) 29.1 L Lymph % (Auto) 61.1 H Lymph # (Auto) 8.14 H [place] # (Auto) 1.26 H Sodium 130 L 128 L Chloride 95 L 92 L Anion Gap 7.0 L BUN 7 L 7 L Creatinine 0.6 L Glucose 10/19/20 10/18/20 10/18/20 05:10 22:02 22:02 WBC 15.6 H RBC 2.50 L Hgb 7.8 L 8.4 L Hct 24.2 L RDW 15.6 H Plt Count 125 L Neut % (Auto) 33.3 L Lymph % (Auto) 62.2 H Lymph # (Auto) 9.71 H [place] # (Auto) Sodium 129 L Chloride Anion Gap BUN Creatinine Glucose 10/18/20 10/18/2021 16:25 08:41 08:40 WBC 17.1 H RBC 2.29 L Hgb 7.0 L* Hct 21.6 L RDW 15.4 H Plt Count Neut % (Auto) 28.4 L Lymph % (Auto) 67.8 H Lymph # (Auto) 11.57 H [place] # (Auto) Sodium 128 L 126 L Chloride 93 L Anion Gap 7.0 L BUN Creatinine Glucose 106 H Meds: Medications Albuterol Sulfate (Albuterol Sulfate 2.5 Mg/3 Ml Nebulizer) 2.5 mg NEB Q2HP PRN PRN Reason: Shortness Of Breath Albuterol/Ipratropium (Ipratropium/Albuterol 3 Ml Ampul.Neb) 3 ml NEB Q6HP [facility] Last Admin: 10/20/20 21:14 Dose: 3 ml Documented by: Docusate Sodium (Docusate Sodium 100 Mg Capsule) 100 mg PO BID [facility] Last Admin: 10/20/20 20:10 Dose: 100 mg Documented by: Levofloxacin (Levaquin) 750 mg in 150 mls @ 100 mls/hr IV Q24H [facility] Stop: 10/24/20 14:59 Last Infusion: 10/20/20 16:25 Dose: Infused Documented by: Lactulose (Lactulose 20 Gm/30 Ml Oral.Britany) 30 gm PO TID [facility] Last Admin: 10/20/20 20:11 Dose: Not Given Documented by: Lactulose (Lactulose 20 Gm/30 Ml Oral.Britany) 10 gm PO DAILYP PRN PRN Reason: Constipation Melatonin (Melatonin 3 Mg Tablet) 3 mg PO [facility] PRN PRN Reason: Sleep Last Admin: 10/20/20 22:13 Dose: 3 mg Documented by: Ondansetron HCl (Ondansetron 4 Mg/2 Ml Vial) 4 mg IV Q4HP PRN; Protocol PRN Reason: Nausea And Vomiting Pantoprazole Sodium (Pantoprazole 40 Mg Vial) 40 mg IV BIDAC [facility] Last Admin: 10/20/20 16:58 Dose: 40 mg Documented by: Senna (Sennosides 1 Tablet) 2 tab PO HSP PRN PRN Reason: Constipation Sodium Chloride (0.9 % Sodium Chloride 10 Ml Syringe) 10 ml IV Q8 [facility] Last Admin: 10/21/20 06:06 Dose: 10 ml Documented by: A/P Narrative A/P Narrative: Assessment: 75 year old male with a history of lymphoma currently on chemotherapy admitted for severe hyponatremia suspected to be secondary to chemotherapy. 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 -mildly elevated TSH, AM cortisol normal #Acute on chronic anemia -1 unit RBC 10/18 -normal LDH, decreased haptoglobin #Concern for possible GI bleed-initially had coffee grounds in NG suction but has resolved, on PPI and monitoring hemoglobin #Dysphagia #B-cell prolymphocytic leukemia #Hx Waldenstrom macroglobulinemia #Lymphocytosis likely from leukemia #Diabetes mellitus #Immunosuppressed status #Hx of atrial fibrillation #Subclinical hypothyroidism #Left foot wounds #Hx of PVD #Hx right BKA Plan -Chest xray Pa/lateral -Complete Levofloxacin x5 days for PNA -ileus probably resolved now, remove NG tube -following sodium daily-stable -dysphagia diet-speech following -follow hemoglobin, transfuse for hgb<7 or symptomatic anemia -continue PPI for now but no evidence of recurrent coffee grounds -holding home BP meds as blood pressure normal -holding home aspirin -holding home lamivudine -fluid restriction -Bowel regimen -DVT ppx: SCD for anemia -Code status: Full -Disposition: TBD Time Spent With Patient Time: Total time spent is greater than 50% in coordination of care (as document ed) at patient's floor/unit and/or counseling patient: QUALITY VTE Deep Vein Thrombosis/Pulmonary Embolism Present on Admission: No
[2020-10-21] MEDS: PANTOPRAZOLE 40 MG VIAL IV SCH ×2 (07:32→17:36)
[2020-10-21 07:45] LABS: Basophils # (Auto) 0.02 K/mcL (0.00-0.20); Basophils % (Auto) 0.2 % (0.0-2.0); Eosinophils # (Auto) 0.02 K/mcL (0.00-0.70); Eosinophils % (Auto) 0.2 % (0.0-7.0); Hemoglobin 7.5 g/dL (13.5-16.5); Lymphocytes # (Auto) 5.97 K/mcL (1.50-4.80); Mean Corpuscular HGB Conc 31.3 g/dL (31.0-36.0); Mean Platelet Volume 9.2 fL (7.4-10.4); Monocytes # (Auto) 1.95 K/mcL (0.10-0.90); Monocytes % (Auto) 18.1 % (1.0-12.0); Neutrophils % (Auto) 26.1 % (38.0-78.0); Platelet Count 106 K/mcL (140-440); WBC 10.8 K/mcL (4.5-11.0)
[2020-10-21 08:32] LABS: Blood Urea Nitrogen 8 mg/dL (8-23); Calcium 8.7 mg/dL (8.6-10.4); Carbon Dioxide 27 mmol/L (22-30); Chloride 96 mmol/L (96-108); Glomerular Filtration Rate 93; Glucose 111 mg/dL (70-105)
[2020-10-21] MEDS: LACTULOSE 20 GM/30 ML ORAL.SOL PO SCH (09:26)
[2020-10-21] MEDS: IPRATROPIUM/ALBUTEROL 3 ML AMPUL.NEB NEB SCH ×2 (09:50→20:20)
[2020-10-21] MEDS: LEVOFLOXACIN 750 MG/150 ML BAG IV SCH (10:01)
[2020-10-21] MEDS: DOCUSATE SODIUM 100 MG CAPSULE PO SCH ×2 (10:01→21:26)
--- NOTE | 2020-10-21 11:21 | XRay Report ---
INDICATION: cough TECHNIQUE: PA and lateral upright chest x-ray COMPARISON: Previous chest x-rays dated 10/19/2020, 10/31/2013. FINDINGS: Lungs: Density in left retrocardiac region consistent with volume loss or pneumonia. Appearance is improved since 10/19/2020. Right lung base is improved. Heart, vascular: No significant cardiomegaly. Pulmonary vascularity is normal. No pulmonary edema or pulmonary congestion Mediastinum, loraine: No mediastinal widening. No hilar mass Pleura:There is blunting of the right costophrenic angle. There is a small to moderate pleural effusion posteriorly. It is difficult to determine whether this is right-sided or left-sided. Thoracic spine, ribs: No thoracic compression fracture. Ribs are negative. No fracture. No lytic lesion IMPRESSION: 1. Improved chest x-ray since 10/19/2020 2. Resolution of right basilar infiltrate. Improved left lower lobe finding loss or consolidation 3. Small to moderate pleural effusion Interpreted and Authenticated by: Ranjeet Segundo 10/21/20
[2020-10-21 11:39] LABS: Lymphocytes % (Auto) 55.4 % (15.0-49.0)
--- NOTE | 2020-10-21 13:30 | Internal Med Progress Note ---
SUBJECTIVE Subjective Patient information: Note initiated : 10/21/20 at 1:25 pm Service Date, if different from initiated Date: [] Patient: Drew Gomez 75 y/o M admitted on 10/17/20 for Hyponatremia. Chief Complaint: [] Interval history: Mr. Gomez is a 75 year old male with history of lymphoma on lamivudine had routine labs drawn by oncology and found to have severe hyponatremia, he presented to [facility] ED and was transferred to [facility] because there were no beds at [facility]. The patient has been asymptomatic from hyponatremia. He also has a history of hypertension, and hyperlipidemia, chronic anemia. 10/17-sodium level improved but trend slowed, concerned about abdominal distention, passing less gas today than usual, abdominal xray showed ileus, NG placed and started suction with improvement in nausea 10/18-improving sodium level, attempted transfer to [facility]-denied. Continues with NG to suction, feels better than yesterday. NG suctioning coffee ground material, 1 unit RBC for anemia. 10/19-had a small bowel movement and passing gas, NG tube suction clear today. Abdominal xray not suggestive of ileus. Discontinued suction. Increased oxygen requirment and rales so chest xray ordered which infiltrate possibly from aspiration, started Ceftriaxone. Speech consulted, NPO. 10/20-feels ok, still no bowel movement today, speech recommended dysphagia diet, bowel regimen, NG clamped but will keep until bowel movements and tolerating diet. 10/21-stable respiratory status, large bowel movement yesterday, ileus probably resolved now, sodium continues to improve, hemoglobin about the same as yesterday and at patient's baseline 10/22 Constitutional Vitals: Vital Signs Temp Pulse Resp BP Pulse Ox 98.2 F 86 16 134/82 93 10/21/20 08:00 10/21/20 09:51 10/21/20 09:51 10/21/20 08:00 10/21/20 09:51 Period Temp Pulse Resp BP Sys/Aguilar Pulse Ox Last 24 Hr 97.7 F-98.2 F 78-93 16-20 118-134/66-82 92-96 Intake and Output 10/20/20 10/21/20 10/21/20 21:59 05:59 13:59 Intake Total 1190 200 150 Output Total 925 525 Balance 265 200 -375 Weight 93.531 kg Intake & Output: Intake & Output 10/20/20 10/21/20 10/21/20 21:59 05:59 13:59 Intake Total 1190 200 150 Output Total 925 525 Balance 265 200 -375 Weight 93.531 kg Intake: IV 150 150 Oral 1040 200 Output: Void Amount 925 525 Other: Meal Dinner Percent of Meal Consumed 100% Feeding Ability Assist with Tray Set Up Urine Appearance Clear Clear Urine Color Dark Yellow Dark Mar Light Mar Stool Size Copious Stool Color Black Stool Consistency Soft Formed Liquid # Bowel Movements 1 # of times incontinent of 1 Bowels Exam: General: Alert, Awake, No acute Distress Eyes/N/T: EOMI, PERRL, MM Head/Neck: neck supple, normocephalic atraumatic CV: RRR, No murmurs, normal s1/s2 Pulm: Clear b/l, no wheezing/rhonchi/rales Abd: NG tube, abdominal distention, decreased bowel sounds, nontender, no guarding. Ext: right BKA, otherwise full range of motion, nontender. Neuro: Alert, no focal deficits, moves all extremities, OBJ DATA Labs CBC & Chem 7: 10/21/20 04:38 10/21/20 04:38 Labs: Abnormal Lab Results 10/21/20 10/21/20 10/20/20 04:38 04:38 05:31 WBC RBC 2.50 L Hgb 7.5 L Hct 24.0 L RDW 15.0 H Plt Count 106 L Neut % (Auto) 26.1 L Lymph % (Auto) 55.4 H [place] % (Auto) 18.1 H Lymph # (Auto) 5.97 H [place] # (Auto) 1.95 H Sodium 132 L 130 L Chloride 95 L Anion Gap 7.0 L BUN 7 L Creatinine 0.6 L Glucose 111 H 10/20/20 10/19/20 10/19/20 05:31 05:10 05:10 WBC 13.3 H 15.6 H RBC 2.55 L 2.50 L Hgb 7.7 L 7.8 L Hct 24.7 L 24.2 L RDW 15.2 H 15.6 H Plt Count 110 L 125 L Neut % (Auto) 29.1 L 33.3 L Lymph % (Auto) 61.1 H 62.2 H [place] % (Auto) Lymph # (Auto) 8.14 H 9.71 H [place] # (Auto) 1.26 H Sodium 128 L Chloride 92 L Anion Gap BUN 7 L Creatinine Glucose 10/18/20 10/18/20 10/18/20 22:02 22:02 16:25 WBC RBC Hgb 8.4 L Hct RDW Plt Count Neut % (Auto) Lymph % (Auto) [place] % (Auto) Lymph # (Auto) [place] # (Auto) Sodium 129 L 128 L Chloride Anion Gap BUN Creatinine Glucose Meds: Medications Albuterol Sulfate (Albuterol Sulfate 2.5 Mg/3 Ml Nebulizer) 2.5 mg NEB Q2HP PRN PRN Reason: Shortness Of Breath Albuterol/Ipratropium (Ipratropium/Albuterol 3 Ml Ampul.Neb) 3 ml NEB Q6HP [facility] Last Admin: 10/21/20 09:50 Dose: 3 ml Documented by: Docusate Sodium (Docusate Sodium 100 Mg Capsule) 100 mg PO BID [facility] Last Admin: 10/21/20 10:01 Dose: 100 mg Documented by: Levofloxacin (Levaquin) 750 mg in 150 mls @ 100 mls/hr IV Q24H [facility] Stop: 10/24/20 14:59 Last Infusion: 10/21/20 11:51 Dose: Infused Documented by: Lactulose (Lactulose 20 Gm/30 Ml Oral.Britany) 10 gm PO DAILYP PRN PRN Reason: Constipation Melatonin (Melatonin 3 Mg Tablet) 3 mg PO HSP PRN PRN Reason: Sleep Last Admin: 10/20/20 22:13 Dose: 3 mg Documented by: Ondansetron HCl (Ondansetron 4 Mg/2 Ml Vial) 4 mg IV Q4HP PRN; Protocol PRN Reason: Nausea And Vomiting Pantoprazole Sodium (Pantoprazole 40 Mg Vial) 40 mg IV BIDAC [facility] Last Admin: 10/21/20 07:32 Dose: 40 mg Documented by: Polyethylene Glycol (Polyethylene Glycol 3350 17 Gm Packet) 17 gm PO DAILY [facility] Senna (Sennosides 1 Tablet) 2 tab PO HSP PRN PRN Reason: Constipation Sodium Chloride (0.9 % Sodium Chloride 10 Ml Syringe) 10 ml IV Q8 [facility] Last Admin: 10/21/20 06:06 Dose: 10 ml Documented by: A/P Narrative A/P Narrative: A: #Pneumonia possibly d/t aspiration: -f/u cxr improed infilatre, smal-mod pleural effusion #Ileus: Resolving #Hyponatremia, 2/2 SIADH: improved -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, mildly elevated TSH, AM cortisol normal #Anemia, acute on chronic: -1 unit RBC 10/18, normal LDH, decreased haptoglobin #Concern for possible GI bleed: initially had coffee grounds in NG suction but has resolved, on PPI and monitoring hemoglobin #Oropharyngeal Dysphagia, moderate: #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: #Lymphocytosis likely from leukemia: #Immunosuppressed status #Diabetes mellitus: #h/o AFib: #Subclinical hypothyroidism: #Left foot wounds: #Hx of PVD #Hx right BKA: # Plan: -Chest xray Pa/lateral -Complete Levofloxacin x5 days for PNA -ileus probably resolved now, remove NG tube -following sodium daily-stable , -fluid restriction -dysphagia diet per ST -monitor H&H, transfuse for hgb<7 or symptomatic anemia -continue PPI for now but no evidence of recurrent coffee grounds -holding home BP meds as blood pressure normal -holding home aspirin -holding home lamivudine -Bowel regimen -DVT ppx: SCD for anemia Code status: Environmental Services Assistant Spent With Patient Time: Total time spent is greater than 50% in coordination of care (as documented) at patient's floor/unit and/or counseling patient: QUALITY VTE Deep Vein Thrombosis/Pulmonary Embolism Present on Admission: No
--- NOTE | 2020-10-21 15:15 | Discharge Summary ---
Discharge Provider Provider Patient information: Note initiated : 10/21/20 at 3:13 pm Service Date, if different from initiated Date: [] Patient: Drew Gomez 75 y/o M admitted on 10/17/20 for Hyponatremia. Chief Complaint: [] Date of admission: 10/17/20 00:02 Discharge date: 10/22/20 Primary care physician: Jose D Townsend MD Consults: 10/16/20 22:01 Consult to Physician [CONS] Routine Comment: Consulting Provider: Yuval Oakley Reason For Exam: Physician to Consult Discharge Meds Discharge Medications Home Medications apple cider vinegar 1,500 mg PO DAILYP PRN 04/22/20 [History Confirmed 10/17/20 Last Taken 10/16/20 08:00] aspirin 81 mg tablet,delayed release 81 mg PO QDAY 04/22/20 [History Confirmed 10/17/20 Last Taken 10/16/20 08:00] atorvastatin 40 mg PO DAILY 10/17/20 [History Confirmed 10/17/20 Last Taken 10/16/20 08:00] lamivudine 100 mg PO BID 10/17/20 [History Confirmed 10/17/20 Last Taken 10/16/20 09:00] metoprolol succinate 50 mg PO BID 10/17/20 [History Confirmed 10/17/20 Last Taken 10/16/20 08:00] amlodipine 5 mg PO QDAY #20 tab 10/21/20 [Rx Last Taken Unknown] pantoprazole [Protonix] 40 mg PO QDAY #90 tab 10/21/20 [Rx Last Taken Unknown] docusate sodium [DOK] 100 mg PO BID #60 cap 10/22/20 [Rx Last Taken Unknown] levofloxacin 750 mg PO QDAY #1 tab 10/22/20 [Rx Last Taken Unknown] polyethylene glycol 3350 [Miralax] 17 g PO QDAY #119 g 10/22/20 [Rx Last Taken Unknown] COURSE Hospital Course Hospital course: Interval history: Mr. 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 The patient has been asymptomatic from hyponatremia. He also has a history of hypertension, and hyperlipidemia, chronic anemia. 5/21-sodium level improved but trend slowed, concerned about abdominal distention, passing less gas today than usual, abdominal xray showed ileus, NG placed and started suction with improvement in nausea 10/18-improving sodium level, attempted transfer to [facility]-denied. Continues with NG to suction, feels better than yesterday. NG suctioning coffee ground material, 1 unit RBC for anemia. 10/19-had a small bowel movement and passing gas, NG tube suction clear today. Abdominal xray not suggestive of ileus. Discontinued suction. Increased oxygen requirment and rales so chest xray ordered which infiltrate possibly from aspiration, started Ceftriaxone. Speech consulted, NPO. 10/20-feels ok, still no bowel movement today, speech recommended dysphagia diet, bowel regimen, NG clamped but will keep until bowel movements and tolerating diet. 10/21-stable respiratory status, large bowel movement yesterday, ileus probably resolved now, sodium continues to improve, hemoglobin about the same as yesterday and at patient's baseline 10/22 No overnight event or new complaints. Had a good bowel movement morning after laxative. Patient discharged home with home health care. 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 fib hypothyroidism foot wounds Time Spent with Patient Time attestation: Total time spent providing and/or coordinating discharge services: Time spent: Greater than 30 minutes EXAM Constitutional Vitals: Temp Pulse Resp BP Pulse Ox 97.6 F 88 20 122/73 95 10/21/20 12:00 10/21/20 12:00 10/21/20 12:00 10/21/20 12:00 10/21/20 12:00 Discharge Data Data Completed and Pending Labs on day of discharge: Labs from last 24 hours 10/21/20 10/21/20 04:38 04:38 WBC 10.8 RBC 2.50 L Hgb 7.5 L Hct 24.0 L MCV 96.0 MCH 30.0 MCHC 31.3 RDW 15.0 H Plt Count 106 L MPV 9.2 Neut % (Auto) 26.1 L Lymph % (Auto) 55.4 H [place] % (Auto) 18.1 H Eos % (Auto) 0.2 Baso % (Auto) 0.2 Lymph # (Auto) 5.97 H [place] # (Auto) 1.95 H Eos # (Auto) 0.02 Baso # (Auto) 0.02 Absolute Neutrophils 2.82 Sodium 132 L Potassium 3.8 Chloride 96 Carbon Dioxide 27 Anion Gap 9.0 BUN 8 Creatinine 0.7 GFR Calculation 93 Glucose 111 H Calcium 8.7 Magnesium 1.9 Discharge Plan Patient/Caregiver Discharge Instructions Activity: increase activity as tolerated Diet: Dysphagia Level 4 Pureed Foods Activity Restrictions/Additional Instructions: Follow-up with PCP in 3 to 7 days 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 1800cc fluid restrict per day. Prescriptions: New pantoprazole [Protonix] 40 mg tablet,delayed release (DR/EC) 40 mg PO QDAY Qty: 90 RF: 0 levofloxacin 750 mg tablet 750 mg PO QDAY Qty: 1 RF: 0 docusate sodium [DOK] 100 mg Capsule 100 mg PO BID Qty: 60 RF: 0 polyethylene glycol 3350 [Miralax] 17 gram/dose powder 17 g PO QDAY Qty: 119 RF: 0 Continued apple cider vinegar 1,500 mg PO DAILYP PRN (Reason: weight control) RF: 0 aspirin [Adult Aspirin Regimen] 81 mg tablet,delayed release (DR/EC) 81 mg PO QDAY RF: 0 metoprolol succinate 50 mg tablet extended release 24 hr 50 mg PO BID RF: 0 atorvastatin 40 mg tablet 40 mg PO DAILY RF: 0 lamivudine 100 mg Tablet 100 mg PO BID RF: 0 Changed amlodipine 10 mg tablet 5 mg PO QDAY Qty: 20 RF: 0 Discontinued losartan 100 mg tablet 100 mg PO QDAY RF: 0 Follow Up Plan Follow up with: Jose D Townsend MD [Primary Care Provider] - Patient Disposition: Home Health Service Prognosis: Undetermined Overall status at discharge: patient is progressing back to baseline Discharge Orders: Discharge Order (Routine); Ordered 10/22/20 Ordered By: Mj Hernandes [facility] VTE Deep Vein Thrombosis/Pulmonary Embolism Present on Admission: No
[2020-10-21] MEDS ORDERED: diphenhydrAMINE 25 MG CAPSULE PO PRN (15:39)
[2020-10-21] MEDS ORDERED: MELATONIN 3 MG TABLET PO SCH (21:00)
[2020-10-22] MEDS: 0.9 % SODIUM CHLORIDE 10 ML SYRINGE IV SCH ×3 (01:06→15:13)
[2020-10-22] MEDS: PANTOPRAZOLE 40 MG VIAL IV SCH (07:37)
--- NOTE | 2020-10-22 07:38 | Internal Med Progress Note ---
SUBJECTIVE Subjective Patient information: Note initiated : 10/22/20 at 7:35 am Service Date, if different from initiated Date: [] Patient: Drew Gomez 75 y/o M admitted on 10/17/20 for Hyponatremia. Chief Complaint: [] Interval history: Mr. 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 The patient has been asymptomatic from hyponatremia. He also has a history of hypertension, and hyperlipidemia, chronic anemia. 10/17-sodium level improved but trend slowed, concerned about abdominal distention, passing less gas today than usual, abdominal xray showed ileus, NG placed and started suction with improvement in nausea 10/18-improving sodium level, attempted transfer to [facility]-denied. Continues with NG to suction, feels better than yesterday. NG suctioning coffee ground material, 1 unit RBC for anemia. 10/19-had a small bowel movement and passing gas, NG tube suction clear today. Abdominal xray not suggestive of ileus. Discontinued suction. Increased oxygen requirment and rales so chest xray ordered which infiltrate possibly from aspiration, started Ceftriaxone. Speech consulted, NPO. 10/20-feels ok, still no bowel movement today, speech recommended dysphagia diet, bowel regimen, NG clamped but will keep until bowel movements and tolerating diet. 10/21-stable respiratory status, large bowel movement yesterday, ileus probably resolved now, sodium continues to improve, hemoglobin about the same as yesterday and at patient's baseline 10/22 Constitutional Vitals: Vital Signs Temp Pulse Resp BP Pulse Ox 98.4 F 78 22 132/68 93 10/22/20 03:10 10/22/20 03:10 10/22/20 03:10 10/22/20 03:10 10/22/20 03:10 Period Temp Pulse Resp BP Sys/Aguilar Pulse Ox Last 24 Hr 97.6 F-98.4 F 78-91 16-24 122-149/68-96 93-96 Intake and Output 10/21/20 10/22/20 10/22/20 21:59 05:59 13:59 Intake Total 240 120 Output Total 250 Balance 240 -130 Weight 104.598 kg Intake & Output: Intake & Output 10/21/20 10/22/20 10/22/20 21:59 05:59 13:59 Intake Total 240 120 Output Total 250 Balance 240 -130 Weight 104.598 kg Intake: Oral 240 120 Output: Void Amount 250 Other: Meal Dinner Percent of Meal Consumed 100% Feeding Ability Independent Urine Appearance Clear Urine Color Dark Yellow Light Mar Exam: General: Alert, Awake, No acute Distress Eyes/N/T: EOMI, PERRL, MM Head/Neck: neck supple, normocephalic atraumatic CV: RRR, No murmurs, normal s1/s2 Pulm: Clear b/l, no wheezing/rhonchi/rales Abd: NG tube, abdominal distention, decreased bowel sounds, nontender, no guarding. Ext: right BKA, otherwise full range of motion, nontender. Neuro: Alert, no focal deficits, moves all extremities, OBJ DATA Labs CBC & Chem 7: 10/21/20 04:38 10/21/20 04:38 Labs: Abnormal Lab Results 10/21/20 10/21/20 10/20/20 04:38 04:38 05:31 WBC RBC 2.50 L Hgb 7.5 L Hct 24.0 L RDW 15.0 H Plt Count 106 L Neut % (Auto) 26.1 L Lymph % (Auto) 55.4 H [place] % (Auto) 18.1 H Lymph # (Auto) 5.97 H [place] # (Auto) 1.95 H Sodium 132 L 130 L Chloride 95 L Anion Gap 7.0 L BUN 7 L Creatinine 0.6 L Glucose 111 H 10/20/20 10/19/20 10/19/20 05:31 05:10 05:10 WBC 13.3 H 15.6 H RBC 2.55 L 2.50 L Hgb 7.7 L 7.8 L Hct 24.7 L 24.2 L RDW 15.2 H 15.6 H Plt Count 110 L 125 L Neut % (Auto) 29.1 L 33.3 L Lymph % (Auto) 61.1 H 62.2 H [place] % (Auto) Lymph # (Auto) 8.14 H 9.71 H [place] # (Auto) 1.26 H Sodium 128 L Chloride 92 L Anion Gap BUN 7 L Creatinine Glucose Meds: Medications Albuterol Sulfate (Albuterol Sulfate 2.5 Mg/3 Ml Nebulizer) 2.5 mg NEB Q2HP PRN PRN Reason: Shortness Of Breath Albuterol/Ipratropium (Ipratropium/Albuterol 3 Ml Ampul.Neb) 3 ml NEB Q6HP [facility] Last Admin: 10/21/20 20:20 Dose: 3 ml Documented by: Diphenhydramine HCl (Diphenhydramine 25 Mg Capsule) 25 mg PO HSP PRN PRN Reason: Insomnia Last Admin: 10/22/20 01:06 Dose: 25 mg Documented by: Docusate Sodium (Docusate Sodium 100 Mg Capsule) 100 mg PO BID [facility] Last Admin: 10/21/20 21:26 Dose: 100 mg Documented by: Levofloxacin (Levaquin) 750 mg in 150 mls @ 100 mls/hr IV Q24H [facility] Stop: 10/24/20 14:59 Last Infusion: 10/21/20 11:51 Dose: Infused Documented by: Lactulose (Lactulose 20 Gm/30 Ml Oral.[place]) 10 gm PO DAILYP PRN PRN Reason: Constipation Last Admin: 10/21/20 15:29 Dose: 10 gm Documented by: Melatonin (Melatonin 3 Mg Tablet) 6 mg PO HS [facility] Last Admin: 10/22/20 01:06 Dose: 6 mg Documented by: Ondansetron HCl (Ondansetron 4 Mg/2 Ml Vial) 4 mg IV Q4HP PRN; Protocol PRN Reason: Nausea And Vomiting Pantoprazole Sodium (Pantoprazole 40 Mg Vial) 40 mg IV BIDAC [facility] Last Admin: 10/21/20 17:36 Dose: 40 mg Documented by: Polyethylene Glycol (Polyethylene Glycol 3350 17 Gm Packet) 17 gm PO DAILY [facility] Senna (Sennosides 1 Tablet) 2 tab PO HSP PRN PRN Reason: Constipation Last Admin: 10/21/20 21:25 Dose: 2 tab Documented by: Sodium Chloride (0.9 % Sodium Chloride 10 Ml Syringe) 10 ml IV Q8 [facility] Last Admin: 10/22/20 05:38 Dose: 10 ml Documented by: A/P Narrative A/P Narrative: A: #Pneumonia possibly d/t aspiration: -f/u cxr improed infilatre, smal-mod pleural effusion -on room air #Ileus: Resolving #Hyponatremia, 2/2 SIADH: improved -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, mildly elevated TSH, AM cortisol normal #Anemia, acute on chronic: -1 unit RBC 10/18, normal LDH, decreased haptoglobin #Concern for possible GI bleed: initially had coffee grounds in NG suction but has resolved, on PPI and monitoring hemoglobin #Oropharyngeal Dysphagia, moderate: #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: #Lymphocytosis likely from leukemia: #Immunosuppressed status #Diabetes mellitus: #h/o AFib: #Subclinical hypothyroidism: #Left foot wounds: #Hx of PVD #Hx right BKA: # Plan: -Complete Levofloxacin x5 days for PNA -ileus probably resolved now, remove NG tube -following sodium daily-stable , -fluid restriction -dysphagia diet per ST -monitor H&H, transfuse for hgb<7 or symptomatic anemia -continue PPI for now but no evidence of recurrent coffee grounds -holding home BP meds as blood pressure normal -holding home aspirin -holding home lamivudine -Bowel regimen -DVT ppx: SCD for anemia Code status: Armature Varnisher Spent With Patient Time: Total time spent is greater than 50% in coordination of care (as documented) at patient's floor/unit and/or counseling patient: [facility]AL[facility] VTE Deep Vein Thrombosis/Pulmonary Embolism Present on Admission: No
[2020-10-22] MEDS ORDERED: LACTULOSE 20 GM/30 ML ORAL.SOL PO ONE (08:07)
[2020-10-22] MEDS: DOCUSATE SODIUM 100 MG CAPSULE PO SCH (08:47)
[2020-10-22] MEDS ORDERED: POLYETHYLENE GLYCOL 3350 17 GM PACKET PO SCH (09:00)
--- NOTE | 2020-10-22 09:09 | XRay Report ---
INDICATION: f/u ileus TECHNIQUE: Supine abdomen. COMPARISON: Previous plain film examinations dated 10/19/2020 and 10/17/2020 FINDINGS:Bowel gas pattern is nonspecific. No evidence for significant mechanical small bowel obstruction. There is small bowel gas but no dilatation. There is no pneumatosis. No biliary or portal venous gas. There is increased density in the left retrocardiac region. Appearance is consistent with left lower lobe volume loss or consolidation. IMPRESSION: Nonspecific bowel gas pattern Interpreted and Authenticated by: Ranjeet Segundo 10/22/20
[2020-10-22] MEDS ORDERED: METOCLOPRAMIDE 10 MG/2 ML VIAL IV ONE (09:28)
[2020-10-22] MEDS: LEVOFLOXACIN 750 MG/150 ML BAG IV SCH (09:43)
[2020-10-22] MEDS ORDERED: FLEETS ADULT ENEMA PR ONE (10:51)
== END 2020-10-22 16:40 | disposition home health service (06) | DRG 643 ==
LOC: ICU 10-17 00:02 → MEDSUR 10-20 14:50
PROVIDERS: ADMIT Internal Medicine; ATTEND Internal Medicine